=== PATIENT | male | born 1975 | race Caucasian/White ===

== ENCOUNTER 2022-05-05 13:53 | Emergency (ER) | payer SELFPAY ==
[~2022-05-05] VITALS: Ht 167.6 cm; Wt 86.2 kg
--- NOTE | 2022-05-05 13:56 | NUR ---
PT BIBA TO BED 8
[2022-05-05 13:59] VITALS: BP 127/77
--- NOTE | 2022-05-05 14:03 | NUR ---
PATIENT FELL ON TO BATHROOM FALL, HITTING LEFT RIB ON BATHTUB. PATIENT IS NOT ON THINNERS, DENIES LOC. CHEST EXPANSION IS SYMMETRICAL, REPORTS PAIN 10/10. SLIGHT SWELLING AND REDNESS NOTED TO LEFT RIB AREA
[2022-05-05] MEDS ORDERED: KETOROLAC 15 MG/ML VIAL IM ONE (14:25)
[2022-05-05] MEDS ORDERED: LIDOCAINE 5% 1 EA PATCH TP ONE (14:25)
--- NOTE | 2022-05-05 14:44 | NUR ---
Patient taken to radiology via wheelchair
--- NOTE | 2022-05-05 14:57 | NUR ---
Patient returned from radiology
--- NOTE | 2022-05-05 15:15 | NUR ---
47 y/o male biba from [facility] for c/o rib pain to left side of chest from s/p fall in the shower x yesterday. Patient states he fell at 2300 yesterday. Denies any LOC, denies head injury. Denies any fever or chills. Patient has symetrical chest rise and fall when breathing. No bruising noted. Medical History: Denies NKDA
[2022-05-05] MEDS ORDERED: IBUP-2213 PO (17:06)
[2022-05-05] MEDS ORDERED: LID5T TP (17:06)
[2022-05-05 17:20] VITALS: BP 136/85
--- NOTE | 2022-05-05 17:20 | NUR ---
Patient discharged with v/s stable. Written and verbal after care instructions given. Patient alert, oriented and verbalized understanding of instructions. Ambulatory with steady gait. All questions addressed prior to discharge. ID band removed. Patient advised to follow up with PMD. Rx of Ibuprofen and Lidocaine Patch given. Opportunity to ask questions provided and answered.
--- NOTE | 2022-05-05 17:25 | NUR ---
The patient's care was reviewed and supervised by Katie Black, RN, RN.
== END 2022-05-05 17:20 | disposition home or self-care (01) ==
LOC: MED 13:53
DX: S20.212A Contusion of left front wall of thorax, initial encounter (principal); F17.210 Nicotine dependence, cigarettes, uncomplicated; Z72.89 Other problems related to lifestyle; W18.30XA Fall on same level, unspecified, initial encounter; Y93.89 Activity, other specified; Y92.89 Other specified places as the place of occurrence of the external cause; Y99.8 Other external cause status
CPT/HCPCS: 71101; 96372; 99283; J1885